=== PATIENT | female | born 1950 | race Caucasian/White ===

== ENCOUNTER → 2019-02-04 23:29 | Outpatient (CLI) | payer MEDICARE, OTHER, SELFPAY ==
[2019-02-04 17:27] VITALS: BMI 28.5
[2019-02-04 23:50] LABS: Cholesterol 250 mg/dL (200); High Density Lipoprotein 73 mg/dL; Triglycerides 124 mg/dL; Very Low Density Lipoprotein 25 mg/dL (5-40)
== END ==
PROVIDERS: Referring Provider Nurse Practitioner; Visit Provider Nurse Practitioner
DX: E78.1 Pure hyperglyceridemia (principal)
CPT/HCPCS: 80061